=== PATIENT | female | born 1950 | race Two or more races ===

== ENCOUNTER 2019-05-24 19:27 | Inpatient (IN) | payer MEDICARE ==
[~2019-05-24] VITALS: Ht 172.7 cm; Wt 61.2 kg
[2019-05-24 21:00] VITALS: BP 166/105
[2019-05-24] MEDS ORDERED: LORAZEPAM 0.5 MG TABLET PO PRN (21:00)
[2019-05-24] MEDS ORDERED: MAGNESIUM HYDROXIDE 30 ML UDC PO PRN (21:00)
[2019-05-24] MEDS ORDERED: MAG HYDROX/AL HYDROX/SIMETH 30 ML UDC PO PRN (21:00)
--- NOTE | 2019-05-24 21:00 | NUR ---
GPS YARN CLEANER NOTES: ADMITTED A 69 YO FEMALE FROM [facility] ON 5150MHOLD FOR DANGER TO SELF. PER HOLD THE PATIENT WAS FOUND UNRESPONSIVE INHER BEDROOM, TRIED BY DAUGHTER TO WAKE PATIENT UP, PATIENT ENDED UP THROWING UP A BUNCH OF PILLS OF XANAX AND LEXAPRO THAT WERE PRESCRIBED TO HER FOR DEPRESSION WHEN . IT IS ALSO STATED IN THE HOLD THAT THE PATIENT HAS ADVISED FAMILY MEMBERS OF HER PLANS OF HURTING HERSELF. PATIENT WILL BE UNDER THE CARE OF DR. ALAMO AND MAY ROTH. PATIENT WAS BROUGHT IN THE UNIT VIA GURNEY, USHERED INTO THE ROOM, CHANGED INTO CLEAN PATIENT'S GOWN. UPON FACE TO FACE EVALUATION PATIENT PRESENTS ALERT AND ORIENTED X4, APPEARS CALM, SAD, DEPRESSED, QUIET, TALKS MINIMALLY ONLY WHEN ENGAGED. SKIN AND BODY ASSESSMENT DONE- SCABS FOUND ON LEFT FOOT AND LEFT LOWER LEG ON THE ANKLE AREA. BELONGINGS AND CONTRABAND CHECKED. MEDICATIONS FOR RECONCILIATION INPUTTED IN THE SYSTEM-MAY ROTH AWARE. PATIENT'S BLOOD PRESSURE NOTED TO BE HIGH, TAKEN ON TWO DIFFERENT OCCASIONS. - MAY ROTH AWARE. MRSA DONE. NOTIFICATION TO FAMILY DONE. Q15 MIN CHECKS STARTED. CARE PLAN FORMULATED AND STARTED. PATIENT ADVISED OF THE HOLD. ORIENTED TO UNIT POLICIES, CARE PLANS, DOCTORS AND STAFF. WILL MONITOR PATIENT FOR MOOD, SAFETY AND BEHAVIOR.
[2019-05-24] MEDS ORDERED: HYDR25TA4 PO (23:13)
[2019-05-24] MEDS ORDERED: ASPI-605 PO (23:13)
[2019-05-24] MEDS ORDERED: ATOR20TA PO (23:13)
[2019-05-24] MEDS ORDERED: OMEP20TA5 PO (23:13)
[2019-05-24] MEDS ORDERED: VERA240C2 PO (23:13)
[2019-05-24] MEDS ORDERED: FERR325T23 PO (23:13)
[2019-05-24] MEDS ORDERED: MULT1TAB73 PO (23:13)
[2019-05-24] MEDS ORDERED: METF-440 PO (23:13)
[2019-05-24] MEDS ORDERED: LISI40TA4 PO (23:13)
[2019-05-24] MEDS ORDERED: TAMS-12 PO (23:13)
[2019-05-24 23:15] VITALS: BP 168/138
[2019-05-24] MEDS ORDERED: clonazePAM 0.5 MG TABLET PO PRN (23:30)
[2019-05-25] MEDS ORDERED: LISINOPRIL (20MG) 20 MG TABLET PO ONE
[2019-05-25] MEDS: VERAPAMIL SR 120 MG TABLET.SA PO SCH ×3 (00:37→21:20)
[2019-05-25 07:55] LABS: BASOPHILS % (AUTO) 0.7 % (0.0-2.0); EOSINOPHILS % (AUTO) 1.9 % (0.0-6.0); HEMATOCRIT 42 % (33-45); HEMOGLOBIN 14.1 g/dL (11.5-14.8); LYMPHOCYTES # (AUTO) 1.7 /CMM (0.8-4.8); LYMPHOCYTES % (AUTO) 23.8 % (20.0-44.0); MEAN CORPUSCULAR HGB CONC 34 g/dl (31.0-36.0); MEAN CORPUSCULAR VOLUME 97 fL (82-100); MONOCYTES # (AUTO) 1.2 /CMM (0.1-1.30); MONOCYTES % (AUTO) 16.2 % (2.0-12.0); NEUTROPHILS # (AUTO) 4.1 /CMM (1.8-8.9); NEUTROPHILS % (AUTO) 57.4 % (43.0-81.0); PLATELET COUNT (AUTO) 218 /CMM (150-450); RED BLOOD CELL COUNT(AUTO) 4.32 MIL/uL (4.0-5.2); WHITE BLOOD COUNT (AUTO) 7.1 K/uL (4.3-11.0)
[2019-05-25 08:00] VITALS: BP 150/96
[2019-05-25 08:10] LABS: CHOLESTEROL 222 mg/dL (<200); HDL CHOLESTEROL 51 mg/dL (40-60); LDL 143 mg/dL (0-99); TRIGLYCERIDES 136 mg/dL (30-150)
[2019-05-25 08:12] LABS: ALBUMIN 3.1 g/dL (3.4-5.0); BILIRUBIN,TOTAL 0.7 mg/dL (0.2-1.0); CALCIUM, SERUM 8.4 mg/dL (8.5-10.1); CREATININE 0.7 mg/dL (0.6-1.3); POTASSIUM 3.4 mmol/L (3.5-5.1); TOTAL PROTEIN, SERUM 6.5 g/dL (6.4-8.2)
[2019-05-25] MEDS: FERROUS SULFATE (325 MG) 325 MG/TAB TABLET PO SCH (08:58)
[2019-05-25] MEDS: TAMSULOSIN 0.4 MG CAP.SR.24H PO SCH ×2 (08:58→09:00)
[2019-05-25] MEDS: ASPIRIN EC 81 MG TABLET.DR PO SCH (08:59)
[2019-05-25] MEDS: MULTIVITAMINS,THERAGRAN 1 UDTAB TABLET PO SCH (08:59)
[2019-05-25] MEDS: LISINOPRIL (20MG) 20 MG TABLET PO SCH (08:59)
[2019-05-25] MEDS: PANTOPRAZOLE 40 MG TABLET.DR PO SCH (08:59)
[2019-05-25] MEDS: METFORMIN 500 MG TABLET PO SCH ×2 (09:00→17:00)
[2019-05-25] MEDS: HYDROCHLOROTHIAZIDE 25 MG TABLET PO SCH ×2 (09:00)
--- NOTE | 2019-05-25 09:02 | NUR ---
AM VERAPAMIL HELD ALREADY GIVEN AROUND MIDNIGHT.
[2019-05-25] MEDS: ACETAMINOPHEN 325 MG TABLET PO PRN ×2 (10:25→17:46)
--- NOTE | 2019-05-25 10:26 | NUR ---
MEDICATED FOR BACK PAIN WITH TYLENOL 650 MG PO.
[2019-05-25] MEDS ORDERED: POTASSIUM CHLORIDE 20 MEQ TAB.PRT.SR PO SCH (10:30)
--- NOTE | 2019-05-25 13:28 | NUR ---
ILEANA SHADE BANDER HERE AND MADE AWARE OF PT'S HIGH BP.INFORMED HER VERAPAMIL GIVEN EARLY IN AM DUE TO ELEVATED BP INSTEAD OF AT 900 AM.
[2019-05-25] MEDS: ESCITALOPRAM OXALATE (10 MG) 10 MG TABLET PO SCH (15:40)
[2019-05-25 16:00] VITALS: BP 126/72
--- NOTE | 2019-05-25 16:14 | NUR ---
Group Note: Pt did not attend group therapy session on 05/25/19 at 2pm discussing grief and loss. Pt was on the phone with her daughter at the time.
[2019-05-25 20:16] VITALS: BP 97/68
[2019-05-25 21:00] VITALS: BP 147/81
[2019-05-25] MEDS: ATORVASTATIN 10 MG TABLET PO SCH (21:19)
[2019-05-25] MEDS: TEMAZEPAM 7.5 MG CAPSULE PO PRN (21:51)
[2019-05-26 06:30] LABS: CALCIUM, SERUM 8.8 mg/dL (8.5-10.1); CREATININE 0.6 mg/dL (0.6-1.3); POTASSIUM 3.8 mmol/L (3.5-5.1)
[2019-05-26] MEDS: ACETAMINOPHEN 325 MG TABLET PO PRN ×2 (06:59→16:51)
[2019-05-26 08:00] VITALS: BP 120/73
[2019-05-26] MEDS: METFORMIN 500 MG TABLET PO SCH (09:00)
[2019-05-26] MEDS: TAMSULOSIN 0.4 MG CAP.SR.24H PO SCH (09:06)
[2019-05-26] MEDS: VERAPAMIL SR 120 MG TABLET.SA PO SCH ×2 (09:06→21:02)
[2019-05-26] MEDS: FERROUS SULFATE (325 MG) 325 MG/TAB TABLET PO SCH (09:06)
[2019-05-26] MEDS: ASPIRIN EC 81 MG TABLET.DR PO SCH (09:06)
[2019-05-26] MEDS: PANTOPRAZOLE 40 MG TABLET.DR PO SCH (09:06)
[2019-05-26] MEDS: ESCITALOPRAM OXALATE (10 MG) 10 MG TABLET PO SCH (09:06)
[2019-05-26] MEDS: MULTIVITAMINS,THERAGRAN 1 UDTAB TABLET PO SCH (09:11)
--- NOTE | 2019-05-26 11:50 | NUR ---
Initial Discharge Plan: Pt currently lives with her daughter and grandchildren in her home located at [address] [place] [address]; ([phone]). Per pt, she would like to return to her family as soon as possible. DENISA will work with the pt and the MD regarding appropriate discharge planning. SW will form a safe and proper discharge.
--- NOTE | 2019-05-26 11:50 | NUR ---
DENISA called Laura ([phone]), the pts daughter, and informed her about the pts treatment plan and initial discharge plan. DENISA stated that the pt is going to be discharged back home either on or Friday. She expressed that she is not pleased with this plan because it is an inconvenience for her work schedule. DENISA stated that she will keep her updated.
[2019-05-26] MEDS: HYDROCHLOROTHIAZIDE 25 MG TABLET PO SCH (14:06)
--- NOTE | 2019-05-26 15:40 | NUR ---
SW conducted a substance abuse intervention with the pt regarding her overdose on prescription medication and her alcohol abuse.
[2019-05-26] MEDS: LISINOPRIL (20MG) 20 MG TABLET PO SCH (15:45)
[2019-05-26 16:12] VITALS: BP 100/64
--- NOTE | 2019-05-26 17:02 | NUR ---
MEDICATED FOR BACK PAIN WITH TYLENOL 650 MG PO.
--- NOTE | 2019-05-26 18:13 | NUR ---
SEEMS MORE CHEERFUL THIS EVENING COMPARED TO AM.HAD SEVERAL VISITORS TODAY.
[2019-05-26 20:46] VITALS: BP 136/99
[2019-05-26] MEDS: ATORVASTATIN 10 MG TABLET PO SCH (21:01)
[2019-05-26] MEDS: TEMAZEPAM 7.5 MG CAPSULE PO PRN (21:44)
[2019-05-27 08:00] VITALS: BP 132/91
[2019-05-27] MEDS: FERROUS SULFATE (325 MG) 325 MG/TAB TABLET PO SCH (08:51)
[2019-05-27] MEDS: MULTIVITAMINS,THERAGRAN 1 UDTAB TABLET PO SCH (08:52)
[2019-05-27] MEDS: LISINOPRIL (20MG) 20 MG TABLET PO SCH (08:53)
[2019-05-27] MEDS: TAMSULOSIN 0.4 MG CAP.SR.24H PO SCH (08:53)
[2019-05-27] MEDS: HYDROCHLOROTHIAZIDE 25 MG TABLET PO SCH (08:53)
[2019-05-27] MEDS: PANTOPRAZOLE 40 MG TABLET.DR PO SCH (08:54)
[2019-05-27] MEDS: ASPIRIN EC 81 MG TABLET.DR PO SCH (08:54)
[2019-05-27] MEDS: VERAPAMIL SR 120 MG TABLET.SA PO SCH ×2 (09:00→21:03)
[2019-05-27] MEDS ORDERED: ESCITALOPRAM OXALATE (10 MG) 10 MG TABLET PO SCH (09:00)
[2019-05-27] MEDS: ACETAMINOPHEN 325 MG TABLET PO PRN (09:02)
--- NOTE | 2019-05-27 14:02 | NUR ---
DENISA called Laura ([phone]), the pts daughter, and informed her that the pt is going to be discharged tomorrow. She stated that she would arrive around 11AM to pick her up.
--- NOTE | 2019-05-27 15:50 | NUR ---
GROUP NOTE: SW prompted pt to attend group discussing the topic of discharge planning, pt refused to participate due to wanting to remain in her room.
[2019-05-27 16:00] VITALS: BP 117/77
[2019-05-27 20:00] VITALS: BP 144/97
[2019-05-27] MEDS: TEMAZEPAM 7.5 MG CAPSULE PO PRN (21:04)
[2019-05-27] MEDS: ATORVASTATIN 10 MG TABLET PO SCH (21:04)
[2019-05-28] MEDS: ACETAMINOPHEN 325 MG TABLET PO PRN (00:25)
[2019-05-28 08:00] VITALS: BP 100/57
[2019-05-28 09:00] VITALS: BP 100/57
[2019-05-28] MEDS: VERAPAMIL SR 120 MG TABLET.SA PO SCH (09:00)
[2019-05-28] MEDS ORDERED: ESCITALOPRAM OXALATE (10 MG) 10 MG TABLET PO SCH (09:00)
[2019-05-28] MEDS: LISINOPRIL (20MG) 20 MG TABLET PO SCH (09:00)
[2019-05-28] MEDS: HYDROCHLOROTHIAZIDE 25 MG TABLET PO SCH (09:00)
--- NOTE | 2019-05-28 09:09 | NUR ---
DR. ALAMO GAVE AN ORDER TO D/C HOLD AND D/C HOME AND TO FOLLOW UP WITH PSYCH AND MEDICAL DOCTORS.
[2019-05-28] MEDS: FERROUS SULFATE (325 MG) 325 MG/TAB TABLET PO SCH (09:11)
[2019-05-28] MEDS: ASPIRIN EC 81 MG TABLET.DR PO SCH (09:11)
[2019-05-28] MEDS: PANTOPRAZOLE 40 MG TABLET.DR PO SCH (09:11)
[2019-05-28] MEDS: MULTIVITAMINS,THERAGRAN 1 UDTAB TABLET PO SCH (09:11)
[2019-05-28] MEDS: TAMSULOSIN 0.4 MG CAP.SR.24H PO SCH (09:18)
--- NOTE | 2019-05-28 11:05 | NUR ---
GPS/RN PT DISCHARGED HOME WITH HER GRANDDAUGHTER A RIDE. PRESCRIPTIONS FROM DR ALAMO PROVIDED. PT DOES NOT NEED MEDICAL PRESCRIPTIONS SHE HAS HER OWN HOME MEDS/PRESCRIPTIONS. NO SI OR HI AT THE TIME OF DISCHARGE. PT IS AMBULATORY A/O X4 VSS NO DISTRESS NOTED. PROPERTY RETURNED, ID BAND REMOVED AND PT ACCOMPANIED TO THE HOSPITAL LOBBY.
--- NOTE | 2019-05-28 15:32 | NUR ---
Discharge Note: Pt was discharged back to her home located at [address] [place] [id number]; ([phone]). Pts daughter, Laura ([phone]), picked the pt up at 11AM. Upon discharge, the pt appeared to be in a euthymic mood and presented with a content affect. Pt denied both suicidal and homicidal ideation as well as auditory and visual hallucinations. Pt was provided with substance abuse referrals at the time of her discharge. Pt was referred to [facility] for psychiatric resources [place] at [address] [place] [address]; and a fax was sent to: . Pt will also be under the care of her warehouse loader, Dr. Kerline Waldrop, located at [address] [facility] [address], [place] [address]; . Substance Abuse Referrals: [facility] [address] [place] [address] Tel. [facility] [address] [place] Provider Mental Health Treatment Tele-dermatology [facility] [place] [address] [place] [address] [facility] [address] [place] [address]
== END 2019-05-28 11:00 | disposition home or self-care (01) | DRG 885 ==
LOC: GPS 20:16
PROVIDERS: ADMIT Psychiatry & Neurology Psychiatry; ATTEND Nurse Practitioner Acute Care
DX: F33.2 Major depressive disorder, recurrent severe without psychotic features (principal); I10 Essential (primary) hypertension; E78.5 Hyperlipidemia, unspecified; K21.9 Gastro-esophageal reflux disease without esophagitis; Z91.5 Personal history of self-harm; F10.10 Alcohol abuse, uncomplicated
CPT/HCPCS: 36415; 80048-TC; 80053-TC; 80061-TC; 85025-TC; 87081-TC